=== PATIENT | female | born 1975 | race Two or more races ===

== ENCOUNTER 2019-06-01 13:43 | Emergency (ER) | payer OTHER ==
[~2019-06-01] VITALS: Ht 154.9 cm; Wt 51.8 kg
[2019-06-01 14:05] VITALS: BP 136/61
[2019-06-01] MEDS ORDERED: ACETAMINOPHEN 500 MG TABLET PO ONE (14:30)
[2019-06-01] MEDS ORDERED: ACETAMINOPHEN 500 MG TABLET ONE (14:32)
--- NOTE | 2019-06-01 14:38 | NUR ---
MEDICATED PER MAR
[2019-06-01 14:53] LABS: RAPID INFLUENZA A Negative (Negative); RAPID INFLUENZA B Negative (Negative)
--- NOTE | 2019-06-01 15:25 | NUR ---
PT PLACED UP FOR RECHECK
--- NOTE | 2019-06-01 16:08 | NUR ---
PATIENT GIVEN D/C PAPERWORK. PT VERBALIZED UNDERSTANDING. PT AMBULATED TO D/C WITH STUDY GAIT.
== END 2019-06-01 16:10 | disposition home or self-care (01) ==
LOC: ED 16:00
DX: J06.9 Acute upper respiratory infection, unspecified (principal)
CPT/HCPCS: 71046; 87081; 87400; 87880; 99284

== ENCOUNTER 2020-10-13 13:02 | Emergency (ER) | payer SELFPAY ==
[~2020-10-13] VITALS: Ht 154.9 cm; Wt 54.3 kg
--- NOTE | 2020-10-13 13:31 | NUR ---
pt from lobby to room [id number]
[2020-10-13 14:16] LABS: BASOPHILS % (AUTO) 1 % (0-1); EOSINOPHILS % (AUTO) 2 % (1-7); LYMPHOCYTES % (AUTO) 23 % (22-44); MD NO; MEAN CORPUSCULAR HEMOGLOBIN 28.7 pg (27.0-34.8); MEAN CORPUSCULAR HGB CONC 33.2 g/dL (32.4-35.8); MEAN PLATELET VOLUME 7.7 fL (7.4-10.4); MONOCYTES % (AUTO) 8 % (2-9); NEUTROPHILS % (AUTO) 67 % (42-75); PLATELET COUNT 257 x10^3/uL (130-400); RED BLOOD COUNT 4.72 x10^6/uL (3.82-5.3); RED CELL DISTRIBUTION WIDTH 14.4 % (9.6-15.2)
[2020-10-13 14:26] LABS: ALANINE AMINOTRANSFERASE 27 U/L (12-78); ALBUMIN 3.5 g/dL (3.4-5.0); ANION GAP 4 mmol/L (5-15); CALCIUM 8.5 mg/dL (8.5-10.1); CHLORIDE 110 mmol/L (98-107); CREATININE 0.71 mg/dL (0.55-1.02)
[2020-10-13 14:30] LABS: ALKALINE PHOSPHATASE 59 U/L (45-117); BILIRUBIN,TOTAL 0.4 mg/dL (0.2-1.0); TOTAL PROTEIN 7.3 g/dL (6.4-8.2)
[2020-10-13 15:07] LABS: HCT (SEDRATE) 40.8 % (34.6-47.8)
[2020-10-13 15:26] VITALS: BP 116/64
--- NOTE | 2020-10-13 15:26 | NUR ---
PT REC'VD DICHARGE INSTRUCTIONS AND EDUCATION. PT HAD NO FURTHER QUESTIONS.
--- NOTE | 2020-10-13 15:32 | NUR ---
PT AMBULATED TO MA AREA, STEADY GAIT
== END 2020-10-13 15:37 | disposition home or self-care (01) ==
LOC: ED 15:30
DX: G62.9 Polyneuropathy, unspecified (principal); L53.9 Erythematous condition, unspecified; R10.9 Unspecified abdominal pain
CPT/HCPCS: 36415; 71045; 80053; 84703; 85025; 85651; 99284